=== PATIENT | male | born 1965 | race Caucasian/White ===

== ENCOUNTER 2018-09-29 22:43 | Emergency (ER) | payer MEDICAID ==
[~2018-09-29] VITALS: Ht 175.3 cm; Wt 72.7 kg
[~2018-09-29 22:43] MED LIST: NOCURR
[2018-09-30] MEDS ORDERED: KETOROLAC TROMETHAMINE 60 MG/2 ML VIAL IM ONE (04:45)
[2018-09-30 05:21] VITALS: BP 122/68
== END 2018-09-30 05:20 | disposition home or self-care (01) ==
LOC: EMS 22:45
DX: M23.92 Unspecified internal derangement of left knee (principal); F12.90 Cannabis use, unspecified, uncomplicated; F17.210 Nicotine dependence, cigarettes, uncomplicated; X50.1XXA Overexertion from prolonged static or awkward postures, initial encounter; Y93.39 Activity, other involving climbing, rappelling and jumping off; Y92.89 Other specified places as the place of occurrence of the external cause; Y99.8 Other external cause status
CPT/HCPCS: 29505; 73562; 96372; 99283; J1885

== ENCOUNTER 2020-05-31 20:07 | Emergency (ER) | payer MEDICAID ==
[~2020-05-31] VITALS: Ht 175.3 cm; Wt 77.3 kg
[2020-05-31 20:42] LABS: BASOPHILS % (AUTO) 0.4 % (0.0-2.0); EOSINOPHILS % (AUTO) 0 % (1.0-6.0); HEMATOCRIT 42.2 % (41-53); HEMOGLOBIN 14.6 g/dL (13.5-17.5); LYMPHOCYTES # (AUTO) 1.5 K/uL (1.0-4.8); LYMPHOCYTES % (AUTO) 10.2 % (22.0-44.0); MEAN CORPUSCULAR HEMOGLOBIN 32.8 pg (26.0-34.0); MEAN CORPUSCULAR HGB CONC 34.6 G/dL (31.0-37.0); MEAN CORPUSCULAR VOLUME 95 fL (80-100); MONOCYTES % (AUTO) 13.4 % (2.0-9.0); NEUTROPHILS # (AUTO) 11.2 K/uL (1.8-7.7); PLATELET COUNT (AUTO) 199 K/uL (150-450); RED BLOOD CELL COUNT(AUTO) 4.45 MIL/uL (4.50-5.90); RED CELL DISTRIBUTION WIDTH 13.3 % (11.5-14.5)
[2020-05-31] MEDS ORDERED: SODIUM CHLORIDE 0.9% 2,300 ML IV ONE (20:45)
[2020-05-31] MEDS ORDERED: ACETAMINOPHEN 500 MG TABLET PO ONE (20:45)
[2020-05-31] MEDS ORDERED: 0.9% SODIUM CHLORIDE 10 ML SYRINGE IVP PRN (20:45)
[2020-05-31] MEDS ORDERED: DOXYCYCLINE HYCLATE 100 MG TABLET PO ONE (20:45)
[2020-05-31 20:54] LABS: CALCIUM, TOTAL 9.3 mg/dL (8.8-10.5); CREATININE 1.28 mg/dL (0.60-1.30); POTASSIUM 3.9 mmol/L (3.5-5.1)
[2020-05-31 20:57] LABS: ALBUMIN 3.7 g/dL (3.4-5.0); TOTAL PROTEIN, SERUM 8.3 g/dL (6.4-8.2)
[2020-05-31 21:34] LABS: PROTHROMBIN TIME 10.8 SEC (9.4-11.6)
[2020-05-31 23:30] VITALS: BP 130/70
== END 2020-06-01 01:40 | disposition left against medical advice (07) ==
LOC: EMS 20:09
DX: S46.001A Unspecified injury of muscle(s) and tendon(s) of the rotator cuff of right shoulder, initial encounter (principal); R50.9 Fever, unspecified; R00.0 Tachycardia, unspecified; F17.210 Nicotine dependence, cigarettes, uncomplicated; F12.90 Cannabis use, unspecified, uncomplicated; Z20.828 Contact with and (suspected) exposure to other viral communicable diseases; X50.0XXA Overexertion from strenuous movement or load, initial encounter; Y93.89 Activity, other specified; Y92.89 Other specified places as the place of occurrence of the external cause; Y99.8 Other external cause status
CPT/HCPCS: 71045; 73030; 80053; 83690; 83880; 84145; 84484; 85025; 85610; 87426; 93005; 99285; U0003

== ENCOUNTER 2020-06-02 10:11 | Emergency (ER) | payer MEDICAID ==
[~2020-06-02] VITALS: Ht 172.7 cm; Wt 75.0 kg
[2020-06-02] MEDS ORDERED: LIDOCAINE 5% TRANSDERMAL PATCH TD ONE (11:45)
[2020-06-02] MEDS ORDERED: KETOROLAC TROMETHAMINE 60 MG/2 ML VIAL IM ONE (11:45)
[2020-06-02] MEDS ORDERED: DOXYCYCLINE HYCLATE 100 MG TABLET PO ONE (12:00)
[2020-06-02 12:10] VITALS: BP 138/84
== END 2020-06-02 12:33 | disposition home or self-care (01) ==
LOC: EMS 10:12
DX: M25.511 Pain in right shoulder (principal); M54.5 Low back pain; L03.113 Cellulitis of right upper limb; F17.210 Nicotine dependence, cigarettes, uncomplicated; F12.90 Cannabis use, unspecified, uncomplicated; F19.90 Other psychoactive substance use, unspecified, uncomplicated
CPT/HCPCS: 96372; 99283; J1885